=== PATIENT | female | born 1965 | race Caucasian/White ===

== ENCOUNTER 2022-05-27 15:12 | Outpatient (CLI) | payer BC, SELFPAY ==
[2022-05-27 19:30] LABS: Chlamydia DNA Amplified* NOT DETECTED (No Detected); GC DNA Amplified* NOT DETECTED (No Detected)
== END 2022-05-27 15:13 | disposition home or self-care (01) ==
PROVIDERS: PCP Internal Medicine; Visit Provider Registered Nurse
DX: N89.8 Other specified noninflammatory disorders of vagina (principal); R35.0 Frequency of micturition
CPT/HCPCS: 87086; 87491; 87591

== ENCOUNTER 2022-07-18 07:06 | Outpatient (CLI) | payer OTHER, BC, SELFPAY ==
--- NOTE | 2022-07-18 07:15 | MR_ITS ---
[facility] [address] [facility] [address] Phone:?[phone] Fax:?[phone] Referring Physician Information: . WILFREDO Simeon [address] [facility] [address] Phone:?[phone] Fax:?[phone] Patient:?Leroy Tompkins D.O.B:?1965 Sex:?Female Phone:?[phone] [facility] MRN:?[id number] Exam Date:?07/18/2022 ? EXAM: MRI of the RIGHT ANKLE, without contrast CLINICAL: Right ankle pain status post twisting related injury on April 01. COMPARISONS: None available. TECHNICAL: MRI sequences of the right ankle: Axials: PD, T2 Coronals: PD, T2 Sagittals: PD, T2, STIR SEDATION: None. CONTRAST: None. FINDINGS: Achilles tendon: No tendinopathy or tear. No retrocalcaneal bursitis. Plantar aponeurosis: Unremarkable. Tarsal tunnel: No masses identified. Sinus Tarsi:?Normal fat within the sinus tarsi without significant scar, synovitis, or mass lesion. Ligaments: Anterior talofibular: Irregularity and thickening of the ligament consistent with sequelae of prior sprain injuries, without complete disruption. Calcaneofibular: Irregularity of the ligament consistent with sequelae of prior sprain injuries, without complete disruption. Posterior talofibular: No injury. Syndesmotic:?The anterior inferior and posterior inferior tibiofibular ligaments are intact. Deltoid: The deep and superficial components of the deltoid ligament are intact. Sinus tarsi: Intact lateral cervical and medial interosseous ligaments. Spring: Intact. Bifurcate and calcaneocuboid: Intact. Flexor tendons: Posterior tibial: No tendinopathy, tear or tenosynovitis. Flexor digitorum longus: Normal. Flexor hallucis longus: Normal. Peroneus brevis and longus: There is mild tendinosis with partial tearing/splitting of the peroneal brevis tendon as it courses along and distal to the distal fibula as seen on axial series 4 images 16-24. Mild tendinosis of the adjacent coursing peroneal longus tendon. No significant tendon displacement. Extensor tendons: Tibialis anterior: Normal, without tendinopathy, tenosynovitis or tear. Extensor hallucis longus: Normal. Extensor digitorum longus: Normal. Joints/Osseous structures: High-grade chondral loss is seen to involve the anterior and posterior distal tibia at the tibiotalar articulation with mild subchondral reactive edema involving the anterior medial tibial plafond. No evidence of fracture or talar dome osteochondral lesion. There is mild marrow edema about the dorsal second TMT joint on sagittal series 5 image 13 suggesting mild reactive changes of arthrosis. Small tibiotalar joint effusion is noted. Minimal fluid within the posterior subtalar joint. IMPRESSION: 1. Sequelae of prior sprain injuries involving the anterior talofibular and calcaneofibular ligaments. 2. Mild tendinosis with partial tearing/splitting of the peroneal brevis tendon as it courses along and distal to the distal fibula, with mild tendinosis of the adjacent coursing peroneal longus tendon. 3. High-grade chondral loss involving the distal tibia at the tibiotalar joint, with mild subchondral reactive marrow edema involving the anterior medial tibial plafond. 4. 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 JCZ Electronically signed on 07/18/2022 10:04:00 AM by Lev Vigil D.O.
== END 2022-07-18 07:07 | disposition home or self-care (01) ==
PROVIDERS: PCP Internal Medicine; Visit Provider Family Medicine
DX: M25.571 Pain in right ankle and joints of right foot (principal); S93.491A Sprain of other ligament of right ankle, initial encounter; S96.811A Strain of other specified muscles and tendons at ankle and foot level, right foot, initial encounter; M19.071 Primary osteoarthritis, right ankle and foot
CPT/HCPCS: 73721

== ENCOUNTER 2023-10-11 08:23 | Outpatient (CLI) | payer BC, SELFPAY | END 2023-10-11 08:24 | disposition home or self-care (01) | PROVIDERS: PCP Internal Medicine; Visit Provider Registered Nurse | DX: R39.82 Chronic bladder pain (principal); R63.1 Polydipsia; R68.82 Decreased libido; Z13.6 Encounter for screening for cardiovascular disorders; Z13.29 Encounter for screening for other suspected endocrine disorder | CPT/HCPCS: 80061; 84443; 87086 ==

== ENCOUNTER 2023-12-18 07:30 | Outpatient (RCR) | payer BC, SELFPAY | END 2024-03-20 10:02 | disposition home or self-care (01) | PROVIDERS: PCP Internal Medicine; Visit Provider Registered Nurse | DX: N39.46 Mixed incontinence (principal); R10.2 Pelvic and perineal pain; Z51.89 Encounter for other specified aftercare | CPT/HCPCS: 97110; 97112; 97162; 97535 ==

== ENCOUNTER 2024-01-24 13:57 | Outpatient (CLI) | payer BC, SELFPAY ==
--- NOTE | 2024-01-24 14:00 | MM_ITS ---
Patient: JACQUELINE CRUZ Facility:?[facility] RIS Patient ID:?[id number] Site Patient ID:?[id number]. Site :?1965 Study:?XRay-Breast Bilateral 3D W/CAD-01/24/2024 3:05:39 PM Ordering Physician:Karly Fulton Final Report: BILATERAL SCREENING MAMMOGRAM WITH COMPUTER-AIDED DETECTION AND TOMOSYNTHESIS TECHNIQUE: CC and MLO views were obtained. These mammographic images have been obtained using full-field digital technique. These mammographic images were interpreted with the benefit of computer-aided detection. Breast Tomosynthesis was used in this interpretation. COMPARISON FILM: 03/03/21, 08/12/19. FINDINGS: The breasts are heterogeneously dense, which may obscure small masses. IMPRESSION: There is no radiographic evidence for malignancy. ASSESSMENT: BI-RADS Category 1: Negative RECOMMENDATION: Routine screening mammogram in 1 year. A lay language report of this examination will be provided to the patient. Obey Romero M.D. Diagnostic Radiologist [employer] [facility] [email or web address] DSM/sp R& Transcribed: 7:42 p.m. SP/Dictated by: Obey Romero MD @ 01/25/2024 11:11:00 AM Signed by:?Obey Romero MD @01/26/2024 5:39:14 AM (Electronic Signature)
--- NOTE | 2024-01-24 14:30 | XR_ITS ---
Patient: JACQUELINE CRUZ Facility:?[facility] Patient ID:?[id number] Site Patient ID:?[id number]. Site :?1965 Study:?DEXA-Bone Density SPINE/BOTH HIPS-01/24/2024 2:52:19 PM Ordering Physician:JUWAN Final Report: DXA BONE MINERAL DENSITY STUDY Current height (in): 59.0. Weight (lb): 116.0. Menopause age: 44. Ethnicity: White. Reason for exam: Screening. 1. Have you had a previous hip or vertebral fracture? No. 2. Have you had any fractures during your adult life which did not result from significant trauma (e.g., auto accident)? No. 3. Did either of your parents have a hip fracture? No. 4. Do you smoke? Yes. 5. Have you ever taken Glucocorticoids? No. 6. Do you have rheumatoid arthritis? No. 7. Do you have secondary osteoporosis? No. 8. Do you drink 3 or more alcoholic drinks per day? No. 9. Are you being treated for osteoporosis? No. 10. Have you ever taken any of the following medications: Actonel, Evista, Fosamax, Miacalcin, Reclast, Boniva, Forteo, HRT (i.e. estrogen/hormone therapy), Protelos, Prolia, ANSWER: Yes, Vitamin D, Calcium, other ? please specify. 11. DO you have any of the following medical conditions: Anorexia or bulimia, asthma or emphysema, end stage renal disease, hyperparathyroidism, any seizure disorders, cancer, inflammatory bowel diseases, hysterectomy, other ? please specify. ANSWER: Yes, vitamin D, calcium, HRT. 12. What was your maximum height (inches)? 60. 13. Do you perform weight bearing exercise regularly? Yes. 14. Do you regularly consume dairy products? Yes. 15. Do you drink caffeinated beverages? Yes. 16. At what age did your period start? 11. 17. Are you premenopausal? No. 18. How many full term pregnancies have you had? 3. 19. Have you ever missed your period for more than 6 months in a row (not including or menopause)? No. TECHNIQUE: Bone mineral density study was performed using the [employer]. FINDINGS: The results of the study expressed as bone mineral density (BMD) are as follows: Lumbar spine L1 to L4: BMD: 0.748 g/cm2. T-score: -2.7. Z-score: -1.4. Neck Left: BMD: 0.585 g/cm2. T-score: -2.4. Z-score: -1.2. Right: BMD: 0.617 g/cm2. T-score: -2.1. Z-score: -0.9. Total Left: BMD: 0.782 g/cm2. T-score: -1.3. Z-score: -0.5. Right: BMD: 0.811 g/cm2. T-score: -1.1. Z-score: -0.2. IMPRESSION: Osteoporosis. Haritha Nobles M.D. Body/Diagnostic Radiologist [email or web address]: D& Transcribed: 11:46 am DW/Dictated by: Haritha Nobles MD @ 01/25/2024 2:31:00 AM Signed by:Marjan Nobles MD @01/25/2024 8:44:47 PM (Electronic Signature)
== END 2024-01-24 13:58 | disposition home or self-care (01) ==
LOC: MAMMO 13:58
PROVIDERS: PCP Internal Medicine; Visit Provider Obstetrics & Gynecology
DX: Z12.31 Encounter for screening mammogram for malignant neoplasm of breast (principal); R92.2 Inconclusive mammogram; Z13.820 Encounter for screening for osteoporosis; M81.0 Age-related osteoporosis without current pathological fracture
CPT/HCPCS: 77063; 77067; 77080

== ENCOUNTER 2024-07-17 09:53 | Outpatient (CLI) | payer OTHER, SELFPAY ==
--- OUTSIDE RECORDS SUMMARY | 2024-07-17 09:57 | XMS_ITS | Clinical Summary ---
Author Organization [facility] Address [place], [place] [address] Care Team Providers Care Service Mechanic Name Role Phone Filemon Jurado MD Primary Care Provider Allergies No known active allergies Medications Medication Sig Dispensed Refills Start Date End Date Status loratadine (CLARITIN ORAL) Take by mouth. Active Social History Tobacco Use Types Packs/Day Years Used Date Smoking Tobacco: Every Day Cigarettes 0.5 2 Smokeless Tobacco: Never Comments:quit 1986, restarte d at of 08/27/10 Alcohol Use Standard Drinks/Week Comments Yes 0 (1 standard drink = 0.6 oz pur e alcohol) 1/2 glass wine a year Sex and Gender Information Value Date Recorded Sex Assigned at Not on file Gender Identity Not on file Sexual Orientation Not on file Obstetrics History Last Filed Vital Signs Vital Sign Reading Time Taken Comments Blood Pressure 129/93 07/23/2018 11:02 PM CDT Pulse 70 07/23/2018 11:02 PM CDT Temperature 36.3 ??C (97.4 ??F) 07/23/2018 7:30 PM CD T Respiratory Rate 16 07/23/2018 7:30 PM CDT Oxygen Saturation 97% 07/23/2018 11:02 PM CDT Inhaled Oxygen Concentration - - Weight 53.5 kg (118 lb) 07/23/2018 7:28 PM CDT Height 152.4 cm (5') 07/23/2018 7:28 PM CDT Body Mass Index 23.05 07/23/2018 7:28 PM CDT Plan of Treatment Health Maintenance Due Date Last Done Comments Tdap 1976 Depression screening for age 12+ 1977 HIV for age 15-65 1980 BMI (ht and wt on same day) for age 18+ 1983 Hepatitis C screening for age 18-79 1983 Tetanus booster 1985 Colonoscopy through age 75 2010 Mammogram for age 45-75 2010 Lipids for age 45-75 08/30/2015 08/30/2010 Zoster (shingles) series for age 50+ (1 of 2) 2015 Pap test for age 21-65 06/25/2022 9, 06/25/2019, 06/02/2015, Additional history exists COVID-19 vaccine series (2022- season) 2023 Influenza for age 50-64 07/21/2024 Pneumococcal series for age 6-64 Aged Out No longer eligible based on patient's age to complete this topic Procedures Procedure Name Priority Date/Time Associated Diagnosis Comments OCCUPATIONAL HEALTH AND SAFETY MANAGER THIN PREP PAP SCREEN IMAGED Routine 06/25/2019 12:00 PM CDT LIPID PANEL W REFLEX MEASURED LDL Routine 08/30/2010 8:58 AM CDT Lipid screening from Last 3 Months or Most Recently Relevant to Health Maintenance Results * OCCUPATIONAL HEALTH AND SAFETY MANAGER THIN PREP PAP SCREEN IMAGED (06/25/2019 12:00 PM CDT) Case Report Gynecologic Cytology Report ? Case: [id number] ? Authorizing Provider: ??Kelley Paris ??Collected: ? 06/25/2019 1200 ? M, MD ? Ordering Location: ? [facility] ?Received: ?06/26/2019 0925 ? First Screen: ?Daina Webster ? Specimen: ?OCCUPATIONAL HEALTH AND SAFETY MANAGER ThinPrep Vial Screening, Cervical/Vaginal ? 07/04/2019 9:41 AM [facility] INTERPRETATION/ RESULT NEGATIVE FOR INTRAEPITHELIAL LESION OR MALIGNANCY (NIL) (none) 07/04/2019 9:41 AM [facility] IMEN ADEQUACY Satisfactory for evaluation Endocervical component present 07/04/2019 9:41 AM [facility] HPV REQUEST HPV and PAP 07/04/2019 9:41 AM [facility] EN[facility] Last Pap Date 06/02/2015 07/04/2019 9:41 AM [facility] EN[facility] Last Pap Result NIL 9 9:41 AM [facility] Comment:- hpv Menstrual Status 07/04/2019 9:41 AM [facility] Comment:menopause Automated Review Successful 07/04/2019 9:41 AM [facility] Comment:Specimen processed s uccessfully by automated student life vice president device, ThinPrep Imaging System, [email or web address] ANCILLARY TESTING OCCUPATIONAL HEALTH AND SAFETY MANAGER HPV Ordered, Please see separate report 07/04/2019 9:41 AM CDT [facility] Note The pap test is a screening technique, not a diagnostic procedure. ??It is used primarily to screen for squamous cancers and precursor lesions. ??Published studies have shown that it is subject to both false negative and false positive results. ??The pap test should not be used as the sole means to diagnose or exclude pre-malignant and malignant lesions. Cytology is screened and interpreted at [facility] - [address], [place] [address] and [facility] - [address]; [place] [address] [address] [facility] - [address]; [place] [address] and [facility] [address]; [place] [address] 07/04/2019 9:41 AM CDT [facility] Other (Cervical/Vagina l) 06/25/2019 12:00 PM CDT 06/26/2019 9:25 AM CDT Kelley Paris MD PATHOLOGY/ CYTOLOGY [facility] [address] [place] [address], * LIPID PANEL W REFLEX MEASURED LDL (08/30/2010 8:58 AM CDT) CHOLESTEROL,TOTAL 149 110 - 199 mg/dL [facility] TRIGLYCERIDES 36 <150 mg/dL [facility] HDL CHOLESTEROL 44 >40 mg/dL [facility] CHOL/HDL RATIO 3.39 <4.51 [facility] LDL CHOLESTEROL 98 <131 mg/dL [facility] PATIENT STATUS Fasting [facility] Blood specimen (specimen) BLOOD SPECIMEN / Unknown 08/30/2010 8:58 AM CDT 08/30/2010 8:52 AM CDT Filemon Jurado MD CHEMISTRY [facility] [address] [place] [address] from Last 3 Months or Most Recently Relevant to Health Maintenance Care Teams Service Mechanic Relationship Specialty Start Date End Date Filemon Jurado MD [address] [place] [address] PCP - General Family Practice 01/04/11
== END 2024-07-17 09:54 | disposition home or self-care (01) ==
PROVIDERS: PCP Internal Medicine; Visit Provider Internal Medicine
DX: I88.9 Nonspecific lymphadenitis, unspecified (principal); E78.00 Pure hypercholesterolemia, unspecified
CPT/HCPCS: 80053; 86618

== ENCOUNTER 2024-10-08 13:48 | Outpatient (CLI) | payer OTHER, SELFPAY ==
--- OUTSIDE RECORDS SUMMARY | 2024-10-08 13:51 | XMS_ITS | Clinical Summary ---
Author Organization [facility] Address [place], [place] [address] Care Team Providers Care Doll Surgeon Name Role Phone Filemon Jurado MD Primary Care Provider Allergies No known active allergies Medications Medication Sig Dispensed Refills Start Date End Date Status loratadine (CLARITIN ORAL) Take by mouth. Active Social History Tobacco Use Types Packs/Day Years Used Date Smoking Tobacco: Every Day Cigarettes 0.5 2 Smokeless Tobacco: Never Comments:quit 1986, restarte at of 08/27/10 Alcohol Use Standard Drinks/Week [...] 70 07/23/2018 11:02 PM CDT Temperature 36.3 C (97.4 F) 07/23/2018 7:30 PM CDT Respiratory Rate 16 07/23/2018 7:30 PM CDT [...] 06/02/2015, Additional history exists COVID-19 vaccine series (2023- season) 2024 Influenza for age 50-64 07/21/2024 Pneumococcal series for age 6-64 Aged Out No longer eligible based on patient's age to complete this topic Procedures Procedure Name Priority Date/Time Associated Diagnosis Comments SENIOR PLANNING ANALYST THIN PREP PAP SCREEN IMAGED Routine 06/25/2019 12:00 PM CDT LIPID PANEL W REFLEX MEASURED LDL Routine 08/30/2010 8:58 AM CDT Lipid screening from Last 3 Months or Most Recently Relevant to Health Maintenance Results * SENIOR PLANNING ANALYST THIN PREP PAP SCREEN IMAGED (06/25/2019 12:00 PM CDT) Case Report Gynecologic Cytology Report Case: [id number] Authorizing Provider: Kleley Paris Collected: 06/25/2019 Madisyn Lentz MD Ordering Location: [facility] Received: 06/26/2019 0925 First Screen: Daina Webster Specimen: SENIOR PLANNING ANALYST ThinPrep Vial Screening, Cervical/Vaginal 07/04/2019 9:41 AM [facility] INTERPRETATION/ RESULT NEGATIVE FOR INTRAEPITHELIAL LESION OR MALIGNANCY (NIL) (none) 07/04/2019 9:41 AM CDT [facility] IMEN ADEQUACY Satisfactory for evaluation Endocervical component present 07/04/2019 9:41 AM CDT [facility] HPV REQUEST HPV and PAP 07/04/2019 9:41 AM CDT [facility] Last Pap Date 06/02/2015 07/04/2019 9:41 AM CDT [facility] Last Pap Result NIL 9 9:41 AM CDT [facility] Comment:- hpv Menstrual Status 07/04/2019 9:41 AM CDT [facility] Comment:menopause Automated Review Successful 07/04/2019 9:41 AM CDT [facility] Comment:Specimen processed s uccessfully by automated passementerie worker device, ThinPrep Imaging System, [employer] ANCILLARY TESTING SENIOR PLANNING ANALYST HPV Ordered, Please see separate report 07/04/2019 9:41 AM CDT [facility] Note The pap test is a screening technique, not a diagnostic procedure. It is used primarily to screen for squamous cancers and precursor lesions. Published studies have shown that it is subject to both false negative and false positive results. The pap test should not be used as the sole means to diagnose or exclude pre-malignant and malignant lesions. Cytology is screened and interpreted at [facility] - [address], [place] [address] and [facility] - [address]; [place] [address] and [facility] - [address]; [place] [address] and [facility] [address]; [place] [address] 07/04/2019 9:41 AM CDT [facility] Other (Cervical/Vagina l) 06/25/2019 12:00 PM CDT 06/26/2019 9:25 AM CDT Kelley Paris MD PATHOLOGY/ CYTOLOGY [facility] [address] [place] [address], [place] * LIPID PANEL W REFLEX MEASURED LDL (08/30/2010 8:58 AM CDT) CHOLESTEROL,TOTAL 149 110 - 199 mg/dL [facility] TRIGLYCERIDES 36 <150 mg/dL [facility] HDL CHOLESTEROL 44 >40 mg/dL [facility] CHOL/HDL RATIO 3.[address] [facility] LDL CHOLESTEROL 98 <131 mg/dL [facility] PATIENT STATUS Fasting [facility] Blood specimen (specimen) BLOOD SPECIMEN / Unknown 08/30/2010 8:58 AM CDT 08/30/2010 8:52 AM CDT Filemon Jurado MD CHEMISTRY [facility] [address] [place] [address] from Last 3 Months or Most Recently Relevant to Health Maintenance Care Teams Doll Surgeon Relationship Specialty Start Date End Date Filemon Jurado MD [address] [place] [address] PCP - General Family Practice 01/04/11
--- NOTE | 2024-10-08 14:00 | CRLHL7_ITS ---
For Patients: As a result of the Century Cures Act, medical imaging exams and procedure reports are released immediately into your electronic medical record. You may view this report before your referring provider. If you have questions, please contact your health care provider. CLINICAL HISTORY: Localized swelling FINDINGS/IMPRESSION: Superficial oval slightly echogenic 1.8 x 0.7 x 1.4 centimeter lesion corresponding to the area of lump may represent a lipoma. Recommend clinical correlation with exam. Dictated by Keiry Wong MD @ 10/09/2024 10:13:32 AM (Electronically Signed)
== END 2024-10-08 13:49 | disposition home or self-care (01) ==
PROVIDERS: PCP Internal Medicine; Visit Provider Otolaryngology
DX: R22.1 Localized swelling, mass and lump, neck (principal)
CPT/HCPCS: 76536

== ENCOUNTER 2025-05-20 07:08 | Outpatient (CLI) | payer BC, SELFPAY ==
--- NOTE | 2025-05-20 07:15 | CRLHL7_ITS ---
For Patients: As a result of the 21st Century Cures Act, medical imaging exams and procedure reports are released immediately into your electronic medical record. You may view this report before your referring provider. If you have questions, please contact your health care provider. CLINICAL INDICATION: Right shoulder pain. COMPARISON IMAGING STUDIES: Radiographs from 04/22/2025. TECHNICAL: Non-contrast MRI of the right shoulder. Axial, sagittal oblique and coronal oblique T1, PD, PD FS, T2 and T2 FS images. 1.5 Lena MR scanner. FINDINGS: GLENOHUMERAL JOINT: Effusion/Joint Space: Small amount of glenohumeral joint fluid. Humeral Head Articular Cartilage: Maintained. Glenoid Articular Cartilage: Maintained. Alignment: Maintained. Capsule: There are areas of mild glenohumeral joint capsular edema. OSSEOUS STRUCTURES: No acute fracture or avascular necrosis. Reactive cystic-like change involves the superolateral humeral head-greater tuberosity junction region. CORACOACROMIAL ARCH: Acromial Morphology: Type 2 acromial morphology. Slight lateral downward sloping of the acromion. No os acromiale. No significant subacromial spur. Lateral acromial thickness is 6 mm. Acromiohumeral Interval: At its narrowest, the interval measures 6 mm. Coracohumeral Interval: At its narrowest, the coracohumeral interval measures 11 mm. Coracoid index is 6 mm. ACROMIOCLAVICULAR JOINT REGION: AC joint degenerative changes. Coracoclavicular ligament intact. BURSAE: No bursal fluid collection. ROTATOR CUFF TENDONS AND MUSCLES AND DELTOID: Supraspinatus and Infraspinatus: Tendinosis of the distal supraspinatus tendon with probable low-grade partial-thickness undersurface tendon tearing and fraying. No full-thickness tendon tear or muscle atrophy. Distal infraspinatus tendon tear or muscle atrophy. Teres Minor: Distal tendon intact. No muscle atrophy. Subscapularis: There is interstitial muscle edema within the subscapularis muscle suggesting muscle strain changes. Tendinosis of the distal tendon. No high-grade distal tendon tear. Deltoid: No muscle atrophy or edema. BICEPS TENDON, LONG HEAD: Tendinosis of the proximal intra-articular long head of the biceps tendon. No dislocation of tendon from bicipital groove. Small amount of fluid within the biceps tendon sheath. GLENOID LABRUM: Degenerative fraying of the superior labrum. OTHER FINDINGS: There is no abnormality within the suprascapular or spinoglenoid notches nor within the quadrilateral space. No axillary adenopathy or mass. IMPRESSION: 1. Subscapularis muscle edema compatible with muscle strain. Tendinosis of the distal tendon. No high-grade distal tendon tear. 2. Distal supraspinatus tendinosis with low-grade partial-thickness undersurface tendon tearing and fraying. No full-thickness tear or muscle atrophy. 3. Mild glenohumeral joint capsular edema which may indicate changes of capsulitis or capsular sprain from trauma. 4. AC joint degenerative changes. 5. No acute fracture. 6. Tendinosis of the proximal long head of the biceps tendon. Dictated by Jagdish Reid MD @ 05/20/2025 1:57:25 PM (Electronically Signed)
--- OUTSIDE RECORDS SUMMARY | 2025-05-20 07:53 | XMS_ITS | Clinical Summary ---
Author Organization [employer] [place] [facility] Address [address] [place] [address] Care Team Providers Care Residential Program Worker Name Role Phone Filemon Jurado MD Primary Care Provider Allergies No known active allergies Medications loratadine (CLARITIN ORAL) Take by mouth. 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 Gender Identity Not on file Sexual Orientation [...] Health Maintenance Due Date Last Done Comments (IA) Tdap 1976 Depression screening for age 12+ 1977 HIV for age 15-65 1980 BMI (ht and wt on same day) for age 18+ 1983 Hepatitis C screening for ag e 18-79 1983 Hepatitis B series for 19+ ( 1 of 3 - 19+ 3-dose series) 1984 Tetanus booster 1985 Colonoscopy through age 75 2010 Mammogram for age 45-75 2010 Lipids for age 45-75 08/30/2015 08/30/2010 Pneumococcal series for age 50+ (1 of 1 - PCV) 2015 Zoster (shingles) series for age 50+ (1 of 2) 2015 Pap test for age 21-65 06/25/2022 9, 06/25/2019, 06/02/2015, Additional history exists COVID-19 vaccine series ( - 2023- season) 2024 Influenza Vaccine (Season Ended) 2025 Procedures Procedure Name Priority Date/Time Associated Diagnosis Comments BOTTOM CRANE OPERATOR THIN PREP PAP SCREEN IMAGED Routine 06/25/2019 12:00 PM CDT LIPID PANEL W REFLEX MEASURED LDL Routine 08/30/2010 8:58 AM CDT Lipid screening from Last 3 Months or Most Recently Relevant to Health Maintenance Results * BOTTOM CRANE OPERATOR THIN PREP PAP SCREEN IMAGED (06/25/2019 12:00 PM CDT) Case Report Gynecologic Cytology Report Case: [id number] Authorizing Provider: Kelley Paris Collected: 06/25/2019 Madisyn Lentz MD Ordering Location: [facility] Received: 06/26/2019 0925 First Screen: Daina Webster Specimen: BOTTOM CRANE OPERATOR ThinPrep Vial Screening, Cervical/Vaginal 07/04/2019 9:41 AM CDT [facility] INTERPRETATION/ RESULT NEGATIVE FOR INTRAEPITHELIAL LESION OR MALIGNANCY (NIL) (none) 07/04/2019 9:41 AM CDT [facility] at 0941 CDT SPECIMEN ADEQUACY Satisfactory for evaluation Endocervical component present 07/04/2019 9:41 AM CDT [facility] HPV REQUEST HPV and PAP 07/04/2019 9:41 AM CDT [facility] Last Pap Date 06/02/2015 07/04/2019 9:41 AM CDT [facility] Last Pap Result NIL 9:41 AM CDT [facility] Comment:- hpv Menstrual Status 07/04/2019 9:41 AM CDT [facility] Comment:menopause Automated Review Successful 07/04/2019 9:41 AM CDT [facility] Comment:Specimen processed s uccessfully by automated credit cashier device, ExchangeryPrep Imaging System, [employer] ANCILLARY TESTING BOTTOM CRANE OPERATOR HPV Ordered, Please see separate report 07/04/2019 9:41 AM CDT [facility] Note The pap test is a [...] lesions. Cytology is screened and interpreted at [facility] - [address], [place] [address] and [facility] - [address]; [place] [address] and [facility] - [address]; [place] [address] and [facility] [address]; [place] [address] 07/04/2019 9:41 AM CDT [facility] Other (Cervical/Vagina l) 06/25/2019 12:00 PM CDT 06/26/2019 9:25 AM CDT us Kelley Paris MD PATHOLOGY/CYTOLOGY Final Result [facility] [address] [place] [address], [place] * LIPID PANEL W REFLEX MEASURED LDL (08/30/2010 8:58 AM CDT) CHOLESTEROL,TOTAL 149 110 - 199 mg/dL [facility] TRIGLYCERIDES 36 <150 mg/dL [facility] HDL CHOLESTEROL 44 >40 mg/dL [facility] CHOL/HDL RATIO 3.39 <4.51 [facility] LDL CHOLESTEROL 98 <131 mg/dL [facility] PATIENT STATUS Fasting [facility] Blood specimen (specimen) BLOOD SPECIMEN / Unknown 08/30/2010 8:58 AM CDT 08/30/2010 8:52 AM CDT us Filemon Jurado MD CHEMISTRY Final Result [facility] [address] [id number] from Last 3 Months or Most Recently Relevant to Health Maintenance Insurance [facility] [employer] * Guarantor: SURI ROWAN Account Type Relation to Patient Date of Phone Billing Address [facility] [place] [address] Care Teams Residential Program Worker Relationship Specialty Start Date End Date Filemon Jurado MD [address] [place] [address] PCP - General Family Practice 01/04/11
--- OUTSIDE RECORDS SUMMARY | 2025-05-20 07:53 | XMS_ITS | Patient Health Record ---
Author Organization [employer] [facility] Address [address] [place] [address] Care Team Providers Care Product/Industry Consultant Name Role Phone Cammie Zamora Primary Care Provider Allergies No Known Allergies Reason For Referral No Information Medications Medication SIG (Take, Route, Frequency, Duration) Notes Start Date End Date Status Homeopathic Products super beets Active Vitamin C Active Vital Signs Heart Rate 82 /min 09/12/2024 Temperature 97.9 degrees Fahrenheit 09/12/2024 Height-cm 149.86 cm 09/12/2024 Oximetry 97 % 09/12/2024 Blood pressure diastolic 58 mm Hg 09/12/2024 Weight-kg 56.06 kg 09/12/2024 Height 59 in 09/12/2024 Blood pressure systolic 116 mm Hg 09/12/2024 Weight 123.6 lbs 09/12/2024 BMI 24.96 kg/m2 09/12/2024 Procedures Procedure Date Ordered Date Performed Result Body Sit e PHQ/LOREE 09/12/2024 09/12/2024 Given in office-EG Encounters Encounter Location Date Provider Diagnosis [employer] [facility] [address] [place] [address] 09/12/2024 Cammie Zamora Acute serous otitis media, right ear H65.01 Assessments Encounter Date Diagnosis (ICD Code) Assessment Notes Treatment Notes Treatment Clinical Notes Section Notes 09/12/2024 Acute serous otitis media, right ear (ICD-10 - H65.01) - Persistent neck lump with associated ear symptoms - Possible chronic ear fluid accumulation Plan: - Prescribe a stronger antibiotic than amoxicillin for possible persistent infection - Educate patient on the nature of ear fluid and its slow drainage - Advise continuation of current allergy medication with decongestant - Recommend following up with scheduled ENT appointment for further evaluation - Medical Lab Tech Instructor patient on proper ear care and avoiding insertion of foreign objects into the ear canal - Discuss the importance of completing the full course of antibiotics - Advise to return if symptoms worsen or new symptoms develop Plan Of Treatment No Information
--- OUTSIDE RECORDS SUMMARY | 2025-05-20 08:20 | XMS_ITS | Data Portability ---
Author Organization [place] [facility] [employer] [facility] Address [address] [place] [address] Assessment Encounter Date Assessment Date Assessment LastModified by Organization Details LastModified Time 01/01/2025 01/01/2025 ASSESSMENT: Patient is a good candidate for conservative care and the prognosis is for a favorable outcome that achieves the patients' goals. We discussed etiology, activity modifications, home care, and other treatment options. Initially, it is recommended that the patient receive in-office treatment 1 times per week for 8 weeks at which time a re-evaluation will be performed to determine an appropriate change in plan. Initially, treatment will focus on joint manipulation to restore range of motion and reduce pain. We will slowly progress to therapeutic exercises and activities to improve function, strength, and stability may also be used as warranted. If the patient is not responding as expected, more invasive procedures will be discussed along with a referral. All considerations above were discussed with the patient and questions answered to satisfaction. If the patient should have any additional questions, or should the condition evolve or worsen, the patient should not hesitate to contact our office. [email or web address] Not available 01/01/2025 18:57:16 Plan of Treatment Reminders Order Date Submit Date Provider Last Modified By Organization Details Last Modified Time Details Appointments None record ed. Lab None record ed. Referral None record ed. Procedures None record ed. Surgeries None record ed. Imaging None record ed. Medication Orders None record ed. Patient TargetsNo targets recorded. Patient InstructionsNo instructions recorded. Reason for Referral None Reported. Problems Name Problem SNOMED Code Status Onset Date Resolution Date Notes Provider Name and Address Organization Details Recorded Time Thoracic segmental dysfunction 090765603 Active 2024 Law Samayoa DC [address], [place], [address], [place] [facility] 18:57:18 Low back pain 647607067 Active 2024 Law ShepherdJoy, [place] [address], [place], [address], [facility] - [facility] 18:57:18 Lumbar segmental dysfunction 745345076 Active 2024 [facility] Johnathan Shepherd[address], [place] [place], [address], [facility] - [facility] 18:57:18 Somatic dysfunction of sacral spine 575463247 Active 2024 [facility] [address], [place] [place], [address], [facility] - [facility] 18:57:18 Somatic dysfunction of lower limb 253806322 Active 2024 [facility] JoaoJoy, [place] [address], [place], [address], [facility] 18:58:48 Problem Notes None recorded. Procedures Surgical History Date Name Laterality Status Provider Name and Address Organization Details Recorded Time 01/01/20 93080: Spinal manipulation, 3 to [address] regions completed [address], [place], [address], [facility] 01/01/2025 18:57:51 01/01/20 05795: Non-spinal manipulation completed [address], [place], [address], [facility] 01/01/2025 18:58:41 Imaging Results None recorded. Procedure Notes None recorded. Medical Equipment None Reported. Vitals None Recorded Social History None recorded. Functional Status None recorded. Mental Status None recorded. Family History Nothing Reported. Medical History No medical history recorded. Gynecological HistoryNo gynecological history recorded. Obstetrics History GPAL:G 0 P 0 0 0 0 Past Encounters Encounter ID Performer Location Encounter Start Date Encounter Closed Date Diagnosis/Indication Diagnosis SNOMED-CT Code Diagnosis ICD10 Code Diagnosis Note [id number] Law Samayoa DC [facility] [address] [facility] [address] 01/01/2025 17:14:32 01/02/2025 09:34:54 Lumbar segmental dysfunction 258874216 M99.03 Low back pain 012242125 M54.50 Somatic dy sfunction of sacral spine 160313788 M99.04 Thoracic s egmental dysfunction 833481524 M99.02 Somatic dy sfunction of lower limb 409849306 M99.06 Health Concerns Section Related Observation LastModified by Organization Detai ls LastModified Time None Recorded Concern Status LastModified by Organization Details LastModified Time None Recorded Advance Directives Directive None Recorded Payers Insurance Date Sequence Insurance Name Policy Number Policy Garcia Covered Member ID Garcia Member ID Guarantor Name 01/01/2025 1 *SELF PAY* Ethan purcell Leda 01/28/2025 1 [place] Jorge Tompkins [id number] Roberth Tompkins Notes Date Note Type Note Provider Name and Address Organization Details Recorded Time 01/01/2025 text/html HPI - Lumbar SpineReported bypatient.Quality:a rzea Severity:not changing Timing:morning Aggravating Factors:standing Alleviating Factors:ice Patient presents with left hip discomfort. Law Samayoa DC [address], [place], [address], [facility] - [facility] 01/01/2025 18:59:07 OBGyn Episode No OBEpisode recorded.
--- OUTSIDE RECORDS SUMMARY | 2025-05-21 00:35 | XMS_ITS | Patient Health Record ---
Author Organization [facility] Address [address] [place] [address] Care Team Providers Care Airport Operations Supervisor Name Role Phone Cammie Zamora Primary Care Provider [phone] Allergies No Known Allergies Reason For Referral [...] office-EG Encounters Encounter Location Date Provider Diagnosis [facility] [address] [place] [address] 09/12/2024 Cammie Zamora Acute serous otitis media, [...] scheduled ENT appointment for further evaluation - Engraver Seals patient on proper ear care and avoiding insertion of foreign objects into the ear canal - Discuss the importance of completing the full course of antibiotics - Advise to return if symptoms worsen or new symptoms develop Plan Of Treatment No Information
--- OUTSIDE RECORDS SUMMARY | 2025-05-21 00:35 | XMS_ITS | Clinical Summary ---
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 Gender Identity Not on file Sexual Orientation [...] Health Maintenance Due Date Last Done Comments Tetanus booster 1976 Depression screening for age 12+ 1977 HIV for age 15-65 1980 BMI (ht and wt on same day) for age 18+ 1983 Hepatitis C screening for ag e 18-79 1983 Hepatitis B series for 19+ ( 1 of 3 - 19+ 3-dose series) 1984 Colonoscopy through age 75 2010 Mammogram for age 45-75 2010 Lipids for age 45-75 08/30/2015 08/30/2010 Pneumococcal series for age 50+ (1 of 1 - PCV) 2015 Zoster (shingles) series for age 50+ (1 of 2) 2015 Pap test for age 21-65 06/25/2022 9, 06/25/2019, 06/02/2015, Additional history exists COVID-19 vaccine series ( - 2023- season) 2024 Influenza Vaccine (#1) 2025 Procedures Procedure Name Priority Date/Time Associated Diagnosis Comments FOOD EDITOR THIN PREP PAP SCREEN IMAGED Routine 06/25/2019 12:00 PM CDT LIPID PANEL W REFLEX MEASURED LDL Routine 08/30/2010 8:58 AM CDT Lipid screening from Last 3 Months or Most Recently Relevant to Health Maintenance Results * FOOD EDITOR THIN PREP PAP SCREEN IMAGED (06/25/2019 12:00 PM CDT) Case Report Gynecologic Cytology Report Case: [id number] Authorizing Provider: Kelley Paris Collected: 06/25/2019 Madisyn Lentz MD Ordering Location: [facility] Received: 06/26/2019 0925 First Screen: Daina Webster Specimen: FOOD EDITOR ThinPrep Vial Screening, Cervical/Vaginal 07/04/2019 9:41 AM [facility]T [facility] INTERPRETATION/ RESULT NEGATIVE FOR INTRAEPITHELIAL LESION OR MALIGNANCY (NIL) (none) 07/04/2019 9:41 AM CDT [facility]-C ENTRAL LABORATORY at 0941 CDT SPECIMEN ADEQUACY Satisfactory for evaluation Endocervical component present 07/04/2019 9:41 AM CDT [facility] HPV REQUEST HPV and PAP 07/04/2019 9:41 AM CDT [facility] Last Pap Date 06/02/2015 07/04/2019 9:41 AM CDT [facility] Last Pap Result NIL 9:41 AM CDT [facility] Comment:- hpv Menstrual Status 07/04/2019 9:41 AM CDT [facility] Comment:menopause Automated Review Successful 07/04/2019 9:41 AM CDT [facility] Comment:Specimen processed s uccessfully by automated fourdrinier machine tender device, ThinPrep Imaging System, [employer] ANCILLARY TESTING FOOD EDITOR HPV Ordered, Please see separate report 07/04/2019 9:41 AM CDT [facility] Note The pap test is a [...] lesions. Cytology is screened and interpreted at [facility] - [address], [place] [address] and [facility] [place] [facility] - [address]; [place] [address] and [facility] - [address]; [place] [address] and [facility] [address]; [place] [address] 07/04/2019 9:41 AM CDT [facility] Other (Cervical/Vagina l) 06/25/2019 12:00 PM CDT 06/26/2019 9:25 AM CDT us Kelley Paris MD PATHOLOGY/CYTOLOGY Final Result [facility] [address] [place] [address], [place] * LIPID PANEL W REFLEX MEASURED LDL (08/30/2010 8:58 AM CDT) CHOLESTEROL,TOTAL 149 110 - 199 mg/dL [facility] TRIGLYCERIDES 36 <150 mg/dL [facility] HDL CHOLESTEROL 44 >40 mg/dL [facility] CHOL/HDL RATIO 3.39 <4.51 [facility] LDL CHOLESTEROL 98 <131 mg/dL [facility] PATIENT STATUS Fasting [facility] Blood specimen (specimen) BLOOD SPECIMEN / Unknown 08/30/2010 8:58 AM CDT 08/30/2010 8:52 AM CDT Filemon Jurado MD CHEMISTRY Final Result [facility] [address] [place] [address] from Last 3 Months or Most Recently Relevant to Health Maintenance Insurance [facility] [employer] * Guarantor: SURI ROWAN Account Type Relation to Patient Date of Phone Billing Address [facility] [employer] Employer [place] [address] Care Teams Excelsior Picker Relationship Specialty Start Date End Date Filemon Jurado MD [address] [place] [address] PCP - General Family Practice 01/04/11
--- OUTSIDE RECORDS SUMMARY | 2025-05-21 00:35 | XMS_ITS | Continuity of Care Document ---
Author Organization [place] - [facility] Address [address] [place] [address] Assessment Encounter Date Assessment Date Assessment LastModified by Organization Details LastModified Time 05/20/2025 05/20/2025 ASSESSMENT: Patient is a good candidate for [...] to contact our office. [email or web address] Not available 05/20/2025 16:15:32 Plan of Treatment Reminders Order Date Submit Date Provider Last Modified By Organization Details Last Modified Time Details Appointments DC Treatment 05 2024 09:30A M Law Samayoa DC Not available Not available Not available Lab None recorded. Referral None recorded. Procedures None recorded. Surgeries None recorded. Imaging None recorded. Medication Orders None recorded. Patient TargetsNo targets recorded. Patient InstructionsNo instructions recorded. Reason for Referral None Reported. Problems Name Problem SNOMED Code Status Onset Date Resolution Date Notes Provider Name and Address Organization Details Recorded Time Thoracic segmental dysfunction 587355873 Active 2024 Law Samayoa [place] [address], [place], [address], [place] [facility] 18:57:18 Low back pain 732867341 Active 2024 Law Samayoa [place] [address], [place], [address], [place] [facility] 18:57:18 Lumbar segmental dysfunction 959749265 Active 2024 Law Samayoa [place] [address], [place], [address], [place] [facility] 18:57:18 Somatic dysfunction of sacral spine 447558866 Active 2024 Law Samayoa [place] [address], [place], [address], [place] [facility] 18:57:18 Somatic dysfunction of lower limb 584698569 Active 2024 Law Samayoa [place] [address], [place], [address], [place] [facility] 18:58:48 Lesion of lumbar spine 749836485 Active 2024 Law Samayoa [place] [address], [place], [address], [place] [facility] 16:15:34 Neck pain 71151625 Active 2024 Law Samayoa [place] [address], [place], [address], [place] [facility] 16:15:34 Cervical segmental dysfunction 115410643 Active 2024 Law Samayoa [place] [address], [place], [address], [place] [facility] 16:15:34 Problem Notes None recorded. Procedures Surgical History Date Name Laterality Status Provider Name and Address Organization Details Recorded Time 05/20/20 44046: Spinal manipulation, 3 to 4 regions completed Law Samayoa DC [address], [place], [address], [facility] 05/20/2025 16:16:15 01/01/20 06671: Spinal manipulation, 3 to 4 regions completed Law Samayoa DC [address], [place], [address], [facility] 01/01/2025 18:57:51 01/01/20 35661: Non-spinal manipulation completed Law Samayoa DC [address], [place], [address], [facility] 01/01/2025 18:58:41 Imaging Results None recorded. Procedure [...] SNOMED-CT Code Diagnosis ICD10 Code Diagnosis Note [id number] Law Samayoa DC [facility] [address] [place] [address] [place] [address] 05/20/2025 11:33:44 05/20/2025 18:15:32 Lesion of lumbar spine 916175492 M99.01 Neck pain 21420632 M54.2 Thoracic s egmental dysfunction 102156247 M99.02 Lumbar seg mental dysfunction 322948029 M99.03 Cervical s egmental dysfunction 218277206 M99.01 Health Concerns Section Related Observation LastModified by Organization Detai ls LastModified Time None Recorded Concern Status LastModified by Organization Details LastModified Time None Recorded Payers Encounter Date Sequence Insurance Name Policy Number Policy Garcia Covered Member ID Garcia Member ID Guarantor Name 05/20/2025 1 [place] Jorge Tompkins [id number] Roberth Tompkins Notes Date Note Type Note Provider Name and Address Organization Details Recorded Time 05/20/2025 text/html HPI - Cervical SpineReported bypatient.Location: left Quality:aching Severity:moderate Duration:2 weeks Timing:gradual Alleviating Factors:ice Aggravating Factors:sitting Associated Symptoms:no numbness/tingling Law Samayoa DC [address], [place], [address], [facility] 05/20/2025 16:16:54 OBGyn Episode No OBEpisode recorded.
== END 2025-05-20 07:09 | disposition home or self-care (01) ==
PROVIDERS: PCP Internal Medicine; Visit Provider Internal Medicine
DX: M25.511 Pain in right shoulder (principal); M75.101 Unspecified rotator cuff tear or rupture of right shoulder, not specified as traumatic; M75.21 Bicipital tendinitis, right shoulder
CPT/HCPCS: 73221